=== PATIENT | female | born 1980 | race Caucasian/White ===

== ENCOUNTER 2019-11-02 00:07 | Day surgery (SDC) | payer OTHER, SELFPAY ==
[2019-10-19 09:31] VITALS: BMI 21.2
[2019-11-02] VITALS (11 sets, daily range): BP systolic 91–108; BP diastolic 64–78; PULSE 68–110; RESP 12–18; TEMP 36.5–36.6; O2SAT 92–99
[2019-11-02 06:34] LABS: Urine Cotinine NEGATIVE
[2019-11-02] MEDS: LACTATED RINGERS 1,000 ML 30 ML IV CONT ×2 (06:50→10:40)
--- NOTE | 2019-11-02 07:03 | WPDHPUPDATE1 ---
History and Physical Update Update Date/Time: 11/02/19 07:03 History and Physical has been reviewed, including an updated exam of the patient. There are NO changes in the patient's condition. Risks, benefits, and alternatives have been discussed and questions answered. Patient agrees to proceed with procedure.
[2019-11-02] MEDS: LIDO 1%/EPINEPHRINE 1:100,000 20 ML VIAL 40 ML INFILTRATE (07:30)
--- NOTE | 2019-11-02 07:32 | P.PNAN_ITS ---
Anes - Initial Pre Proc Eval Procedure: Operation Date: 11/02/19 07:30 Proposed Procedures p Bilateral Breast Implant Exchange With Galaflex Placement(Bilateral) - Anrdes Hull MD s Bilateral Mastopexy Revision(Bilateral) - Andres Hull MD Date/Time: 11/02/19 07:32 Surgeon: Andres Hull MD Pre Op Diagnosis: Skin Laxity Patient Data Age: 39 Gender: F Height: 4 ft 11 in Weight: 49.2 kg Last Vital Signs Temp 97.7 F 11/02/19 06:31 Pulse 72 11/02/19 06:31 Resp 16 11/02/19 06:31 BP 108/77 11/02/19 06:31 Pulse Ox 99 11/02/19 06:31 Allergies Allergy/AdvReac Type Severity Reaction Status Date / Time No Known Allergies Allergy Unknown Verified 11/02/19 07:06 Home Medications Medication Instructions Recorded Confirmed Type carisoprodol 350 mg tablet 350 mg PO TID PRN #21 tablet 10/10/19 10/19/19 Rx docusate sodium 100 mg capsule 100 mg PO DAILY #14 cap 10/10/19 10/19/19 Rx ondansetron HCl 4 mg tablet 4 mg PO Q8H #28 tablet 10/10/19 10/19/19 Rx oxycodone-acetaminophen 5 mg-325 1 tablet PO Q6H PRN #15 tablet 10/10/19 10/19/19 Rx mg tablet Laboratory Tests 11/02/19 06:15 Cotinine Negative Patient hx anesthesia problems: none Family hx anesthesia problems: none [facility] Past Medical History Medical History (Updated 11/02/19 @ 07:32 by Reginaldo Allen MD) Migraine Social History Social History Smoking status: Former smoker Alcohol intake: current Anes - Eval Final PreProcedure Day of Procedure 11/02/19 07:32 Patient weight: normal Heart: regular rate and rhythm Lungs: clear to auscultation Airway: Mallampati scale class II Neurological: alert and oriented Last oral intake: >/= 8 hours ASA classification: II Emergent: no Anesthetic plan: proceed Anesthesia type and monitoring: general LMA and standard monitoring Informed Consent: The patient's anesthetic plan and its attendant risks and benefits were discussed with the patient/family/POA. Questions were solicited and answers provided to the satisfaction of the patient/family/POA.
[2019-11-02] MEDS: ceFAZolin 2 GM/D5W 50 ML 2 GM/50 ML BAG IVPB (07:43)
--- NOTE | 2019-11-02 10:34 | SUR.OPER ---
EBL:5CC
--- NOTE | 2019-11-02 10:36 | P.OP_ITS ---
Procedure Note - Detailed Date of procedure: 11/02/19 Pre-op diagnosis: Skin Laxity History bilateral breast augmentation Post-op diagnosis: same Procedure performed: Revision bilateral mastopexy Bilateral breast implant exchange with Galaflex Description of procedure: She is here today for bilateral breast implant exchange, revision of mastopexy, and placement of galaflex for support.. Previously and again today the risks, benefits, alternatives were discussed in extensive detail. I wanted her to be very realistic about the risks involved as well as expectations. We discussed aftercare and what to monitor for. Made sure answered all of her questions to her satisfaction today and consent was obtained. Marked in the preoperative holding area with their verification. The patient was taken to the operating room placed supine on the operating table. Anesthesia was provided by anesthesiology. A surgical time-out was taken. We cleansed the skin and 1% lidocaine and 0.25% Marcaine with epinephrine was used anesthetize as a field block. She was prepped and draped in a standard sterile fashion. Tegaderm nipple [place] were placed. A 15 blade used to make an incision along the previous incisions. Dissection was continued to just above the capsule and I elevated the mastopexy flaps. Hyperbaric that gallop flex and inset it along the IMF with the previous implant placed suturing this with 3-0 Vicryl to the chest wall. I then incised the capsule which was very thin. Implants were removed. I irrigated with more than 3 L of saline solution on TUR tubing. I did a capsulotomy on the superior aspect as she was placing a larger implant. She had significant lateral motion so I did popcorn capsulorrhaphy laterally. I then copiously irrigated with saline solution and verified a strict hemost asis. Next the use a triple antibiotic and Betadine containing solution to irrigate the pocket. I washed my gloves with the triple antibiotic and Betadine solution. We washed the implant immediately upon opening it with this solution and only opened it when we needed it. The implant was introduced into the pocket. I closed the capsule with a 2-0 Vicryl. I made sure the galaflex was tacked into place appropriately. I then tailor tacked the breast into position and placed her in a sitting position. I verified my markings. I removed this portion of bilateral IMF excess as well as a small portion of vertical access on the left. I then closed using 2-0 Vicryl deep followed by 3-0 Monocryl in the vertical and 3-0 strata fix on the IMF. This is followed by running subcuticular 4-0 Monocryl and tissue glue. Multiple times throughout the procedure and the and placed her in a sitting position to verify positioning and ultimate appearance. I did not over correct as we did use galaflex Fluffs, Simon wrap, and surgical bra were placed. Patient was awoke and taken to PACU without difficulty. All instrument sponge counts were correct at the end of the case. Anesthesia: GLMA Surgeon: Andres Hull MD Estimated blood loss (mL): 20 Drains: No Packing: No Pathology: none sent Complications: No immediate complications Condition: stable Disposition: PACU Findings: Implants: Right: REF SSF-[id number] SN [id number] Left: REF SSF-450 SN [id number] Galaflex [id number]. REF [id number]
[2019-11-02] MEDS: ONDANSETRON INJ 4 MG/2 ML VIAL IV PUSH (10:58)
--- NOTE | 2019-11-02 11:49 | SUR.PHASEI ---
1145: Report given to TAE Ledesma.
--- NOTE | 2019-11-02 11:54 | SUR.PHASEI ---
1154; ATTEMPTED TO UPDATE FAMILY. NOT HERE AT THIS TIME.
[2019-11-02] MEDS: SCOPOLAMINE 1.5 MG PATCH TRANSDERM (12:00)
--- NOTE | 2019-11-02 12:23 | SUR.PHASEI ---
1205; PT DOESNT WANT ANY PAIN MEDICATION NOW. DUE TO HER HAVING INTERMITTENT NAUSEA. 1223; PT RESTING QUIETLY. RESP EVEN UNLABORED
--- NOTE | 2019-11-02 12:39 | SUR.PHASEI ---
1239; PT STATES SHE IS READY TO SEE FAMILY. NAUSEA BETTER NOW.
== END 2019-11-02 13:25 | disposition home or self-care (01) ==
PROVIDERS: Visit Provider Surgery Plastic and Reconstructive Surgery
PROC: (CPT 19342; principal; 2019-11-02 07:30)
PROC: (CPT 19316; 2019-11-02 07:30)
DX: Z41.1 Encounter for cosmetic surgery (principal); L57.4 Cutis laxa senilis; Z87.891 Personal history of nicotine dependence
CPT/HCPCS: 19371; 19340; 36415; 80307; A9270; J0690; J1100; J1200; J1580; J2250; J2405; J2704; J3010; J7120